=== PATIENT | male | born 1970 | race Caucasian/White ===

== ENCOUNTER 2017-12-20 11:39 | Emergency (ER) | payer BC, MEDICAID | END 2017-12-20 14:05 | disposition home or self-care (01) | LOC: FTE 11:39 | DX: S76.011A Strain of muscle, fascia and tendon of right hip, initial encounter (principal); S89.91XA Unspecified injury of right lower leg, initial encounter; W18.39XA Other fall on same level, initial encounter; Y92.9 Unspecified place or not applicable | CPT/HCPCS: 73510; 73562; 99283-25 ==